=== PATIENT | male | born 1970 | race Caucasian/White ===

== ENCOUNTER → 2017-06-24 | Outpatient (CLI) | payer BC ==
--- NOTE | 2017-06-24 13:01 | RADIOLOGY IMAGING REPORT ---
FACILITY: [facility] PATIENT NAME: Brandon Paulson : 1970 MR: [id number] V: [id number] EXAM DATE: ORDERING PHYSICIAN: DEVANTE BILLINGS TECHNOLOGIST: Location: [facility] - [place] Patient: Brandon Paulson : 1970 Visit/Account:[id number] Date of Sevice: 06/24/2017 EXAMINATION: Scrotal ultrasound with duplex Doppler evaluation 06/24/2017 11:39 AM HISTORY: Left testicular pain for 10 days COMPARISON STUDIES: none FINDINGS: Testes: Right: 3.8 x 2.3 x 2.9 cm, Left: 3.8 x 2.4 x 2.8 cm There is fairly symmetric heterogeneously hypoechoic tissue along the inferior pole of both te sticles with the area measuring about 2.0 x 0.6 x 0.9 cm on the right and 1.7 x 0.7 x 0.8 cm on the l eft. This is not the classic location for rete testes , although that may be the explanation. Symmetr ic malignancy is very unlikely. Focal orchitis with such a symmetric appearance is also not likely. Symmetric blood flow documented by color Doppler ultrasound Arterial blood flow within each testicle by duplex Doppler ultrasound. Venous blood flow is als o documented. Epididymides: negative Blood flow is appropriate in each epididymis by color Doppler ultrasound. Hydrocele: Bilateral, larger on the left Varicocele:none IMPRESSION: 1. Bilateral hydroceles left larger than right. 2. No evidence of torsion or acute epididymal orchitis. 3. Symmetric hypoechoic areas in the inferior pole of each testicle. As discussed above, I think this may be benign rete testis although it is not the classic location. Neoplasm or focal orchitis is unl ikely given the symmetric appearance. I called report to DEVANTE BILLINGS at 06/24/2017 12:37 PM. Report Dictated By: Joe Alfonso MD at 06/24/2017 12:26 PM Report E-Signed By: Joe Alfonso MD at 06/24/2017 12:58 PM WSN:[id number]
== END ==
LOC: US 11:05
PROVIDERS: ATTEND Nurse Practitioner Family
DX: N43.3 Hydrocele, unspecified (principal)
CPT/HCPCS: 76870